=== PATIENT | male | born 1970 | race Caucasian/White ===

== ENCOUNTER 2019-06-27 13:19 | Emergency (ER) | payer MEDICAID, SELFPAY ==
--- NOTE | 2019-06-27 02:32 | DI.US_ITS ---
EXAM: US LOWER EXTREMITY VENOUS RT CLINICAL HISTORY: pain r/o DVT TECHNIQUE: Right lower extremity venous ultrasound performed using grayscale, color-flow, and spectr al Doppler analysis. COMPARISON: CAROTID ULTRASOUND from 12/15/2014 FINDINGS: The right common femoral, femoral and popliteal veins demonstrate normal compressibility, augmentatio n, and color Doppler. The posterior tibial veins are patent.The saphenofemoral junction is unremarkab le. IMPRESSION: No DVT. The findings were discussed with the Emergency Department on the date of the examination.
[2019-06-27 13:33] VITALS: BP 161/106; PULSE 86; RESP 16; TEMP 36.5; O2SAT 98
--- NOTE | 2019-06-29 09:16 | ED.GENADUL_ITS ---
Discharge Plan Disposition Patient Disposition: HOME Condition: Good Discharge Details Chief Complaint: Orthopedic Clinical Impression: Anterior devlin splints Primary Care Provider: Manjinder Dunn ED Provider: Sarita Germain Home Meds and New Rx's Prescriptions: No Action hydrochlorothiazide 25 MG tablet 25 mg PO DAILY Qty: 90 RF: 3 Discharge Instructions Instructions: Devlin Splints (ED) Additional Instructions: Rest. Activities as tolerated. Elevate injury to prevent swelling. Ice to the area of discomfort for 15 min. 3-5 times daily. Motrin every 8 hours with food or Tylenol every 6 hours for soreness if needed over the counter for comfort. Followup with orthopedic doctor as discussed if not improving in one week. Return for any worsening or concerns sooner if needed. Stand Alone Forms: Work Release Referrals: Richard Caceres MD [ [facility] STAFF PHYSICIAN] - Discharge Data Discharge Date/Time-TO BE ENTERED AT DEPARTURE: 06/27/19 16:20 Medical Decision Making Is a 48-year-old patient who presents for complaints right devlin pain. Patient reports right devlin pain for the last week worse after walking. Patient reports he walks very regularly as he does not have a vehicle. Patient reports he is required to walk approximately 1 to 2 miles to get to the bus to get to work as well as to the grocery store. Patient reports normal right devlin pain worse after ambulating occasionally causing him to stop walking. Patient does report swelling of the leg although has no significant swelling at this time. Patient denies calf pain. Patient denies numbness, tingling or weakness. Clinically patient has notable right devlin tenderness with palpation with no overlying skin changes. Ultrasound ordered to rule out DVT associated with lower leg complaints. Patient denies any associated systemic complaints. Patient denies shortness of breath, difficulty breathing, dyspnea on exertion or chest pain. No dizziness or lightheadedness. Patient's ultrasound reveals CLINICAL HISTORY: pain r/o DVT TECHNIQUE: Right lower extremity venous ultrasound performed using grayscale, color-flow, and spectral Doppler analysis. COMPARISON: CAROTID ULTRASOUND from 12/15/2014 FINDINGS: The right common femoral, femoral and popliteal veins demonstrate normal compressibility, augmentation, and color Doppler. The posterior tibial veins are patent.The saphenofemoral junction is unremarkable. IMPRESSION: No DVT. The findings were discussed with the Emergency Department on the date of the examination. Patient negative for acute DVT therefore my primary clinical concern is acute right shinsplints. Patient has good pulses in the affected leg. Joint to get patient encouraged rest as best possible. Provided a work note therefore he was able to avoid ambulating for few days to decrease inflammation, rice encouraged. Encouraged follow-up with mechanical integrity specialist for reevaluation for persistence of pain. Patient reports his understanding and agrees with plan of care. The patient was stable and requested discharge. Prior to discharge, my usual and customary return precautions were reviewed with the patient - this included follow-up instructions and reasons to return to the Emergency Department if conditions worsens, does not improve as expected, or other new concerns arise. HPI General Date/Time Provider Initiated Documentation: 06/27/19 14:23 . HPI Narrative: This is a 48-year-old patient who presents for complaints of right leg pain. Patient reports right devlin pain. Patient reports he does not have a car therefore takes the bus and walks approximately 1 to 2 miles regularly to get to the grocery store or to get to the bus to get to work. Patient reports right anterior devlin pain. Patient complains of pain worse after walking. Patient does report occasional pain while walking. Patient does not report a predictable nature of pain after certain distances. Denies numbness, tingling or weakness associated. Patient points to the anterior right devlin as site of most notable pain. Patient denies significant past calf pain. Patient denies any back pain or radiating pain. Denies difficulty breathing or shortness of breath or wheezing. No other concerns or complaints at this time. Patient reports onset of pain approximately 1 week ago. Improved with rest. Related Data Home Medications Medication Instructions Recorded Confirmed hydrochlorothiazide 25 mg PO DAILY #90 tab-cap 01/19/15 06/27/19 Allergies Allergy/AdvReac Type Severity Reaction Status Date / Time aspirin Allergy Unverified 06/27/19 13:48 codeine Allergy Unverified 06/27/19 13:47 Penicillins Allergy Unverified 06/27/19 13:47 General Stated Complaint: Orthopedic SONJA: 4 Review of Systems All systems reviewed & are unremarkable except as noted in HPI and below Constitutional Constitutional: Denies fatigue and Denies headache(s) ENT Ears, Nose, Mouth, and Throat: Denies headache(s) and Denies neck pain Cardiovascular Cardiovascular: Denies chest pain Respiratory Respiratory: Denies cough, Denies pain on inspiration and Denies pain with cough Gastrointestinal Gastrointestinal: Denies abdominal pain, Denies nausea and Denies vomiting Musculoskeletal Musculoskeletal: Denies back pain, Denies limited range of motion, Denies neck pain, Denies numbness, Denies radiating pain into limb, Denies stiffness and Denies tingling Integumentary/Breasts Skin/Breast: Denies rash and Denies wounds Neurologic Neurologic: Denies headache(s), Denies numbness and Denies tingling Endocrine Endocrine: Denies fatigue [facility] Surgical History (Updated 05/08/18 @ 14:36 by [employer]) Splenomegaly [facility] [place] Social History Smoking/Tobacco Use Status: Current every day Alcohol Intake: current Alcohol Intake frequency: a few times a month Drug use: Never Do you feel safe at home: Yes Do you feel safe in your relationship?: Yes Exam Narrative Exam Narrative: CONST: Healthy appearing patient, in no acute distress. Well hydrated. Alert and alert. NECK: Normal visual inspection. FROM. No lymphadenopathy. Trachea midline. No Midline tenderness. CHEST: Normal insepection of the chest. RESP: Normal respiratory effort. Speaking full sentences. No cough. No wheezing. No retractions. Clear to auscaltation. Breath sound equal and present bilaterally. CARDIO: No JVD. Normal PMI. Regular Rate. Regular Rhythm. Normal peripheral pulses. GI: Normal inspection of abdomen. No distension. Soft. Nontender. Bowel sounds present in all 4 quadrants. No rebound. No gaurding. MUSCULOSKELETAL: Normal Gait. FROM of all extremities. Distal neurovascularly intact. Sensation intact distally. Patient has right anterior devlin tenderness along the lateral compartment consistent with devlin splints with palpation. Pain increased with extension and flexion of foot. No significant calf pain with palpation. No Achilles tenderness with palpation. No ankle or foot pain with palpation. Sensation intact distally. SKIN: Normal. Dry. No rashes. Course Vital Signs Vital signs: Vital Signs Temperature 36.5 C 06/27/19 13:33 Pulse 86 06/27/19 13:33 Respiratory Rate 16 06/27/19 13:33 Blood Pressure 161/106 H 06/27/19 13:33 Pulse Oximetry 98 06/27/19 13:33 Temperature 36.5 C 06/27/19 13:33 Temperature Source Skin 12/06/19 13:33 Pulse 86 06/27/19 13:33 Respiratory Rate 16 06/27/19 13:33 Respiratory Effort Non-Labored 06/27/19 13:34 Blood Pressure 161/106 H 06/27/19 13:33 Blood Pressure Position Sitting 06/27/19 13:33 Pulse Oximetry 98 06/27/19 13:33 Oxygen Delivery Method Room Air 06/27/19 13:33 Oxygen Flow Rate 0 06/27/19 13:33 Pain Level 8 06/27/19 14:33
== END 2019-06-27 16:20 | disposition home or self-care (01) ==
PROVIDERS: Emergency Provider Physician Assistant; PCP Family Medicine
DX: S86.891A Other injury of other muscle(s) and tendon(s) at lower leg level, right leg, initial encounter (principal); X50.9XXA Other and unspecified overexertion or strenuous movements or postures, initial encounter
CPT/HCPCS: 99284; 93971

== ENCOUNTER 2025-04-30 00:57 | Outpatient (CLI) | payer MEDICAID, SELFPAY ==
[2025-04-30 16:16] LABS: Abs Immature Grans 0.09 10^3/uL (0.0-0.06); HCT 41.8 % (40.0-50.0); HGB 14.2 g/dL (13.5-17.5); Immature Grans % 0.5 %; MCH 29.0 pg (27.0-33.0); MCHC 34.0 % (32.0-36.0); MCV 85 fL (80-95); MPV 8.8 fL (8.0-11.0); Platelet Count 369 10^3/uL (130-400); RBC 4.90 10^6/uL (4.36-5.78); RDW 12.3 % (11.8-14.1); RDW-SD 38.2 fL; WBC 19.18 10^3/uL (4.4-10.8)
[2025-04-30 16:29] LABS: RBC Morphology Normal
[2025-04-30 16:38] LABS: ALT 30 U/L (16-63); AST 21 U/L (15-37); Albumin 3.9 g/dL (3.4-5.0); Alkaline Phosphatase 110 U/L (46-116); Anion Gap 8.2 mmol/L (3-11); BUN 7 mg/dL (7-18); Bilirubin, Total 0.6 mg/dL (0.2-1.0); CO2 28.8 mmol/L (21.0-32.0); Calcium 9.0 mg/dL (8.5-10.1); Chloride 95 mmol/L (98-107); Estimated GFR 105.82 (mL/min/1.73m2); Glucose 117 mg/dL (74-106); Potassium 4.2 mmol/L (3.5-5.1); Sodium 132 mmol/L (136-145); Total Protein 7.6 g/dL (6.4-8.2)
== END 2025-04-30 00:58 | disposition home or self-care (01) ==
LOC: LOS 00:57
PROVIDERS: Visit Provider Physician Assistant
DX: R53.83 Other fatigue (principal); I10 Essential (primary) hypertension
CPT/HCPCS: 36415; 80053; 85025